=== PATIENT | female | born 1975 | race Caucasian/White ===

== ENCOUNTER 2016-08-27 10:00 | Day surgery (SDC) | payer MEDICAID ==
[2016-08-25 09:48] LABS: ASPARTATE AMINO TRANSFERASE 98 U/L (15-37); BLOOD UREA NITROGEN 9 mg/dL (7-18)
[~2016-08-27] VITALS: Ht 149.9 cm; Wt 100.0 kg
[~2016-08-27 10:00] MED LIST: ALBU8.5H5 INH; MELA5TAB19 PO; NONE PER PT; NORG1TAB29 PO
[2016-08-27 10:21] VITALS: BP 131/89
[2016-08-27] MEDS ORDERED: FENTANYL PF 100 MCG/2ML ONE (10:36)
[2016-08-27] MEDS ORDERED: MIDAZOLAM 1 MG/ML, 2ML ONE (10:36)
[2016-08-27] MEDS ORDERED: LACTATED RINGERS 1,000 ML IV SCH (10:37)
[2016-08-27] MEDS ORDERED: HYDROmorphone 1 MG/ML, 1ML IV PRN (11:00)
[2016-08-27] MEDS ORDERED: ONDANSETRON 2MG/ML, 2ML IVPush PRN (11:00)
[2016-08-27] MEDS ORDERED: HYDROcodone/APAP 7.5-325MG/15ML UDC PO PRN (11:00)
[2016-08-27] MEDS ORDERED: PROMETHAZINE 25 MG/ML, 1ML IV PRN (11:00)
[2016-08-27] MEDS ORDERED: FENTANYL PF 100 MCG/2ML IV PRN (11:00)
[2016-08-27] MEDS ORDERED: MIDAZOLAM 1 MG/ML, 2ML IV PRN (11:00)
[2016-08-27] MEDS ORDERED: OXYcodone 5 MG/5 ML ORAL.SOL UDC PO PRN (11:00)
[2016-08-27] MEDS ORDERED: MEPERIDINE/PF 25MG/0.5ML IVPush PRN (11:00)
[2016-08-27] MEDS ORDERED: ACETAMINOPHEN 325 MG TABLET PO PRN (11:00)
[2016-08-27] MEDS ORDERED: PROPOFOL 10 MG/ML, 20ML ONE (11:10)
[2016-08-27] MEDS ORDERED: ONDANSETRON 2MG/ML, 2ML ONE (11:10)
[2016-08-27] MEDS ORDERED: DEXAMETHASONE 4 MG/ML, 1ML ONE (11:10)
== END 2016-08-27 14:10 ==
LOC: OUT 10:00
PROVIDERS: ATTEND Urology
DX: N20.0 Calculus of kidney (principal); I10 Essential (primary) hypertension; K21.9 Gastro-esophageal reflux disease without esophagitis; J45.909 Unspecified asthma, uncomplicated; Z87.440 Personal history of urinary (tract) infections; Z72.89 Other problems related to lifestyle; Z87.891 Personal history of nicotine dependence
CPT/HCPCS: 36415; 50590; 80053; 81001; 85025; 85610; 85730; 87077; 87086; 87186; 93005; J1100; J2250; J2405; J2704; J3010; J7120

== ENCOUNTER → 2017-11-16 | Outpatient (CLI) | payer MEDICAID | END | disposition home or self-care (01) | LOC: CFH 10:00 | PROVIDERS: ATTEND Nurse Practitioner | DX: D25.9 Leiomyoma of uterus, unspecified (principal) | CPT/HCPCS: 76830 ==

== ENCOUNTER → 2017-12-18 | Outpatient (CLI) | payer MEDICAID | END | disposition home or self-care (01) | LOC: CFH 13:54 | PROVIDERS: ATTEND Nurse Practitioner | DX: Z12.31 Encounter for screening mammogram for malignant neoplasm of breast (principal) | CPT/HCPCS: 77067 ==